=== PATIENT | female | born 1965 | race African-American/Black ===

== ENCOUNTER 2021-08-16 09:32 | Emergency (ER) | payer OTHER ==
[~2021-08-16] VITALS: Ht 170.2 cm; Wt 77.1 kg
== END 2021-08-16 10:52 | disposition home or self-care (01) ==
LOC: ER 09:32
DX: L03.115 Cellulitis of right lower limb (principal); S90.561A Insect bite (nonvenomous), right ankle, initial encounter; W57.XXXA Bitten or stung by nonvenomous insect and other nonvenomous arthropods, initial encounter; Y93.9 Activity, unspecified; Y92.9 Unspecified place or not applicable; Y99.9 Unspecified external cause status